=== PATIENT | male | born 1960 | race African-American/Black ===

== ENCOUNTER 2022-06-08 14:05 | Outpatient (CLI) | payer MEDICARE, MEDICAID, SELFPAY ==
--- NOTE | ~2022-06-08 | XR_ITS ---
XR chest 2V 06/08/2022 14:44 Indication: Shortness of breath. Uncomplicated. Procedure: 2 view chest Comparison: No prior studies for comparison. Findings: Heart size is normal. No focal air space disease, pulmonary edema, pleural effusion or susp ected pneumothorax. Impression: 1: No acute cardiopulmonary disease. Reviewed, dictated and finalized at location A. Impression: 1: No acute cardiopulmonary disease.
== END 2022-06-08 14:06 | disposition home or self-care (01) ==
PROVIDERS: PCP Nurse Practitioner Family; Visit Provider Nurse Practitioner Family
DX: J45.909 Unspecified asthma, uncomplicated (principal)
CPT/HCPCS: 71046

== ENCOUNTER 2022-08-02 14:35 | Emergency (ER) | payer MEDICARE, SELFPAY ==
[2022-08-02] VITALS (17 sets, daily range): BP systolic 117–173; BP diastolic 64–98; PULSE 61–87; RESP 12–21; O2SAT 90–100
[2022-08-02 15:17] LABS: Basophils Percent Auto 0.1 % (0.2-1.2); Hematocrit 48.6 % (42.0-52.0); Hemoglobin 16.4 g/dL (14.0-18.0); Immature Granulocyte Absolute 0.02 K/mm3 (0.00-0.031); Immature Granulocyte Percent A 0.2 % (0-0.5); Lymphocytes Absolute Auto 0.56 K/mm3 (0.9-3.2); Lymphocytes Percent Auto 4.6 % (18.3-44.2); Mean Corpuscular HGB Conc 33.7 g/dl (32-36); Mean Corpuscular Hemoglobin 29.9 pg (26-34); Mean Corpuscular Volume 88.5 fl (80-100); Mean Platelet Volume 10.2 fl (7.4-10.4); Monocytes Absolute Auto 0.4 K/mm3 (0.1-0.6); Monocytes Percent Auto 3.5 % (2.6-8.5); Neutrophils Absolute Auto 11.1 K/mm3 (1.3-6.7); Neutrophils Percent Auto 91.6 % (45.5-73.1); Platelet Count Result 230 k/mm3 (150-375); Red Blood Count 5.49 M/mm3 (4.6-6.20); Red Cell Distribution Width 12.6 % (11.5-14.5); White Blood Count 12.1 K/mm3 (4.5-10.0)
[2022-08-02 15:25] LABS: Alanine Aminotransferase 27 U/L (6-50); Alkaline Phosphatase 130 U/L (38-126); Anion Gap 11 mmol/L (8-16); Aspartate Amino Transferase 29 U/L (17-59); Bilirubin,Total 0.7 mg/dL (0.2-1.3); Blood Urea Nitrogen 15 mg/dL (9-20); Calcium 9.9 mg/dL (8.4-10.2); Carbon Dioxide 26 mmol/L (22-30); Chloride 105 mmol/L (98-107); Estimated CRCL calculation 70 ml/min; Estimated Glomerular Filt Rate > 60; Glucose 169 mg/dL (65-110); Lipase 109 U/L (23-300); Potassium 3.9 mmol/L (3.4-5.0); Sodium 142 mmol/L (137-145)
[2022-08-02] MEDS: SODIUM CHLORIDE 0.9% IV 1,000 ML 999 ML IV CONT (15:25)
[2022-08-02] MEDS: ONDANSETRON INJ 4 MG/2 ML VIAL IV PUSH (15:41)
[2022-08-02] MEDS: PANTOPRAZOLE SODIUM IV 40 MG VIAL IV PUSH (15:45)
[2022-08-02 16:01] LABS: INR 0.9; Prothrombin Time 12.9 Seconds (11.1-14.7)
[2022-08-02 16:02] LABS: Partial Thromboplastin Time 24.9 SECONDS (22.3-36.8)
[2022-08-02] MEDS: BELLADONNA ALK/PHENOB ELIX 10 ML, MAG HYDROX/ALUMINUM HYD/SIMETH 30 ML, LIDOCAINE HCL 2... PO (18:14)
--- NOTE | 2022-08-02 18:15 | ED.GENADULT ---
HPI - General Adult General Chief complaint: Nausea/Vomiting/Diarrhea Stated complaint: vomiting Time Seen by Provider: 08/02/22 14:42 History of Present Illness HPI narrative: Patient is a 61-year-old male who presents ER with nausea and vomiting. He has been drinking alcohol recently. Has burning in his epigastrium going up into his chest. No blood in his stool. Patient does take Coumadin. He has recently had to increase his warfarin due to low INR levels. He has had no dark blood in his stool and no gross blood in his stool. Reports he has had scopes in the past and has no history of gastric ulceration. Related Data Allergies Allergy/AdvReac Type Severity Reaction Status Date / Time epinephrine Allergy Unknown Hives Verified 08/02/22 15:26 CEPHALEXIN MONOHYDRATE Allergy Unknown Hives Uncoded 08/02/22 15:26 Review of Systems Review of Systems: All systems reviewed & are unremarkable except as noted in HPI and below Constitutional: Constitutional: Denies chills, Denies fatigue and Denies fever(s) ENT: Denies nasal congestion and Denies sore throat Cardiovascular: Cardiovascular: Denies chest pain, Denies rapid heart rate and Denies radiating jaw, neck or arm pain Respiratory: Respiratory: Denies cough and Denies dyspnea Gastrointestinal: Gastrointestinal: Reports abdominal pain, Reports heartburn, Denies diarrhea, Reports nausea and Reports vomiting Musculoskeletal: Musculoskeletal: Denies back pain PMFSH Past Medical History Medical History (Updated 08/02/22 @ 18:23 by Myles Maldonado MD) Anxiety Asthma Depression Diabetes DVT (deep venous thrombosis) GERD (gastroesophageal reflux disease) Pulmonary embolism Surgical History Surgical History (Updated 08/02/22 @ 18:19 by Myles Malodnado MD) History of colonoscopy Exam Narrative: GENERAL: Uncomfortable-appearing, well-nourished, and in no acute distress. HEAD: Normocephalic, atraumatic. ENT: Mucous membranes moist. NECK: Supple. CHEST: Clear to auscultation. No respiratory distress. HEART: Regular rate and rhythm. Normal peripheral pulses. ABDOMEN: Soft, nontender, reducible umbilical hernia, nondistended, normal active bowel sounds. EXTREMITIES: Normal range of motion. No edema. SKIN: Warm, dry, no rash. NEURO: Alert and oriented x3. PSYCH: Normal mood and affect. Course Course Emergency Course: Patient improved with antiemetics and Protonix. Patient given GI cocktail and tolerating oral fluids. Warren appropriate for discharge. Discussed gastritis and treatment plan and she verbalized understanding. Vital Signs Vital signs: Vital Signs Pulse Rate 67 08/02/22 15:13 Respiratory Rate 14 08/02/22 15:13 Blood Pressure 155/90 H 08/02/22 15:13 Pulse Oximetry 100 08/02/22 15:13 Oxygen Delivery Room Air 08/02/22 15:13 Pulse Rate 65 08/02/22 18:08 Respiratory Rate 19 08/02/22 18:08 Blood Pressure 173/89 H 08/02/22 17:31 Pulse Oximetry 100 08/02/22 18:08 Oxygen Delivery Room Air 08/02/22 15:13 Medical Decision Making Vital Signs Vital Signs: Vital Signs Pulse Rate 67 08/02/22 15:13 Respiratory Rate 14 08/02/22 15:13 Blood Pressure 155/90 H 08/02/22 15:13 Pulse Oximetry 100 08/02/22 15:13 Oxygen Delivery Room Air 08/02/22 15:13 Pulse Rate 65 08/02/22 18:08 Respiratory Rate 19 08/02/22 18:08 Blood Pressure 173/89 H 08/02/22 17:31 Pulse Oximetry 100 08/02/22 18:08 Oxygen Delivery Room Air 08/02/22 15:13 Lab Data 08/02/22 15:06 08/02/22 15:06 Labs: Lab Results 08/02/22 08/02/22 08/02/22 Range/Units 15:06 15:33 18:22 WBC 12.1 H (4.5-10.0) K/mm3 RBC 5.49 (4.6-6.20) M/mm3 Hgb 16.4 (14.0-18.0) g/dL Hct 48.6 (42.0-52.0) % MCV 88.5 (80-100) fl MCH 29.9 (26-34) pg MCHC 33.7 (32-36) g/dl RDW 12.6 (11.5-14.5) % Plt Count 230 (150-375) k/mm3 MPV 10.2 (7.4-10.4)
[2022-08-02 18:47] LABS: Appearance Urine Clear (Clear); Bacteria Urine None Seen /hpf; Bilirubin Urine Negative (Negative); Blood Urine Negative (Negative); Color Urine Yellow (Yellow); Glucose Urine UA Trace mg/dL (Negative); Ketones Urine 3+ mg/dL (Negative); Leukocyte Esterase Ur Negative LEU/UL (Negative); Nitrate Urine Negative (Negative); Non Pathogenic Casts 0-2; Protein Urine 1+ mg/dL (Negative); Specific Grav Ur 1.028 (1.001-1.035); Squamous Epithelial Cell Urine None seen /hpf (Few); Urobilinogen Urine 0.2 mg/dL (<2.0); WBC Urine 0-5 /hpf; pH Urine 8.5 (5.0-9.0)
[2022-08-02 18:48] LABS: Add Urine Microscopic? YES
== END 2022-08-02 19:29 | disposition home or self-care (01) ==
PROVIDERS: Emergency Provider Emergency Medicine; PCP Nurse Practitioner Family
DX: K29.70 Gastritis, unspecified, without bleeding (principal); E11.9 Type 2 diabetes mellitus without complications; Z86.718 Personal history of other venous thrombosis and embolism
CPT/HCPCS: 36415; 80053; 81001; 83690; 85025; 85610; 85730; 96361; 96374; 96375; 99284; A9270; C9113; J2405; J7030

== ENCOUNTER 2023-10-14 13:37 | Outpatient (CLI) | payer MEDICARE, MEDICAID, SELFPAY ==
--- NOTE | ~2023-10-14 | XR_ITS ---
XR foot RT min 3V Ordering provider: Alina Cook History: . RIGHT FOOT PAIN, FALL X 1 WEEK . Comparison: None. FINDINGS: BONES: No acute fracture or dislocation. Hallux valgus. Slight loss of volume of the navicular bone with flat foot. JOINT SPACES: Narrowing of all the talonavicular joint and calcaneocuboid joint. No tarsal coalition. SOFT TISSUES: Soft tissue swelling over the dorsum and plantar aspect. IMPRESSION: No acute osseous abnormality of the right foot. Flat foot. Hallux valgus. 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 Reviewed, dictated and finalized at location A.
== END 2023-10-14 13:38 | disposition home or self-care (01) ==
PROVIDERS: PCP Nurse Practitioner Family
DX: M21.41 Flat foot [pes planus] (acquired), right foot (principal); M20.11 Hallux valgus (acquired), right foot; M19.071 Primary osteoarthritis, right ankle and foot
CPT/HCPCS: 73630